=== PATIENT | female | born 1970 | race Caucasian/White ===

== ENCOUNTER 2024-11-23 08:53 | Day surgery (SDC) | payer OTHER, BC ==
[~2024-11-23] VITALS: Ht 160 cm; Wt 75.7 kg
[~2024-11-23 08:53] MED LIST: Bupivacaine 0.25% Epi 1:200000 30 ML Vial ONE; Bupivacaine 0.5% W/EPI 1:200000 SDV 30 ML Vial ONE
[2024-11-23] MEDS ORDERED: Ondansetron HCl 2 MG / ML 2ML Vial ONE (09:49)
[2024-11-23] MEDS ORDERED: Dexamethasone Sod Phos 10 MG/ML 1ML VIAL ONE (09:49)
[2024-11-23] MEDS ORDERED: Midazolam HCl 1MG / ML 2ML Vial ONE (09:49)
[2024-11-23] MEDS ORDERED: FentaNYL Citrate 50 MCG/ML 2 ML Injection ONE ×3 (09:49→13:03)
[2024-11-23] MEDS ORDERED: Mirapex0.5 MG PO (10:15)
[2024-11-23] MEDS ORDERED: Ipratropium/Albuterol SulF 2.5-0.5MG/3 ML Amp ONE (10:17)
[2024-11-23] MEDS ORDERED: CeFAZolin Sodium 2,000 MG VIAL ONE (10:31)
[2024-11-23] MEDS ORDERED: TOPI25 PO (10:43)
--- NOTE | 2024-11-23 12:12 | NUR ---
11/23/24 1212 Lubna Morris T/O FOR POP BLOCK AT 1154 WITH EDIS COTTO AND DR. GARCIA WITH DR. SMITH. START TIME: 1207. END TIME: 1212.
[2024-11-23] MEDS ORDERED: HYDROcodone 5-APAP 325 TAB ONE (13:54)
== END 2024-11-23 14:09 | disposition home or self-care (01) ==
LOC: ORSCSDS 08:53
PROVIDERS: Podiatrist Foot & Ankle Surgery
PROC: 0QSK04Z Reposition Left Fibula with Internal Fixation Device, Open Approach (ICD-10-PCS; principal; 2024-11-23 10:45)
DX: S82.62XA Displaced fracture of lateral malleolus of left fibula, initial encounter for closed fracture (principal); W18.42XA Slipping, tripping and stumbling without falling due to stepping into hole or opening, initial encounter; E78.5 Hyperlipidemia, unspecified; J44.9 Chronic obstructive pulmonary disease, unspecified; Z87.891 Personal history of nicotine dependence; Z79.82 Long term (current) use of aspirin; Z79.899 Other long term (current) drug therapy
CPT/HCPCS: A6253; A9270; C1713; J0690; J1100; J2250; J2405; J2704; J3010; J7120